=== PATIENT | male | born 1955 | race Caucasian/White ===

== ENCOUNTER → 2017-06-23 | Outpatient (CLI) | payer OTHER ==
--- NOTE | 2017-06-23 11:58 | PCVCIMAG ---
EXAM: BILATERAL CAROTID DUPLEX INDICATION: Carotid Occlusive Disease. FINDINGS: Doppler Measurements (centimeters per second): RIGHT: Peak CCA-87, Peak ECA-81, Diastolic ICA-40, Peak ICA-96, ICA/CCA Ratio-1.1. LEFT: Peak CCA-90, Peak ECA-100, Diastolic ICA-32, Peak ICA-81, ICA/CCA Ratio-0.9. RIGHT CAROTID: The carotid bulb has no significant plaque. The proximal internal carotid artery shows no significant stenosis. The common carotid artery shows no significant stenosis. The external carotid artery shows no significant stenosis. LEFT CAROTID: The carotid bulb has mild plaque. The proximal internal carotid artery shows <40% stenosis. The common carotid artery shows no significant stenosis. The external carotid artery shows no significant stenosis. Antegrade flow in both vertebral arteries. IMPRESSION: No significant stenosis of the right internal carotid artery with no significant plaque. <40% stenosis of the left internal carotid artery with mild plaque. LOC:[place] [id number]
--- NOTE | 2017-06-23 13:37 | PCVCIMAG ---
EXAM: AORTOILIAC DUPLEX INDICATION: Palpable abdominal fullness. FINDINGS: AORTA: Suprarenal aorta measures maximum diameter of 2.9 cm. There is not a fusiform infrarenal aortic aneurysm. The infrarenal aorta measures maximum diameter of 2.5 cm. No aortic stenosis. RIGHT COMMON ILIAC ARTERY: Maximum diameter is 1.1 cm. No significant stenosis. RIGHT EXTERNAL ILIAC ARTERY: No significant stenosis. LEFT COMMON ILIAC ARTERY: Maximum diameter is 1.3 cm. No significant stenosis. LEFT EXTERNAL ILIAC ARTERY: No significant stenosis. IMPRESSION: No abdominal aortic aneurysm. No aortoiliac stenosis seen. LOC:[id number]
== END | disposition home or self-care (01) ==
LOC: PCVCIMAG 10:12
PROVIDERS: ATTEND Internal Medicine Cardiovascular Disease
DX: I65.22 Occlusion and stenosis of left carotid artery (principal); E78.5 Hyperlipidemia, unspecified; R19.8 Other specified symptoms and signs involving the digestive system and abdomen; I87.2 Venous insufficiency (chronic) (peripheral); R19.09 Other intra-abdominal and pelvic swelling, mass and lump; M19.90 Unspecified osteoarthritis, unspecified site; Z72.0 Tobacco use; Z79.01 Long term (current) use of anticoagulants
CPT/HCPCS: 93880; 93978

== ENCOUNTER → 2017-07-04 | Outpatient (CLI) | payer OTHER ==
--- NOTE | 2017-07-04 14:48 | PCVCIMAG ---
APPROVED REPORT Exam: Stress Echocardiogram Indication: Nonischemic cardiomyopathy, tobacco use, HLP Patient Location: Echo lab Stress Nurse: Elayne Kay RN Status: routine Ht: 6 ft 2 in HR: 91 bpm BP: 144/88 mmHg Rhythm: NSR w/ PVCs Procedure The patient underwent an Exercise Stress Test using the Colin Protocol. Blood pressure, heart rate, and EKG were monitored. An Echocardiogram was performed by magnetic testing technician in four stages in quad fashion. At peak stress, four selected images were obtained and placed side by side with resting images for comparison. Stress Test Details Stress Test: Exercise stress testing was performed using a Colin protocol. HR Resting HR: 91 bpmMax Heart Rate (APMHR): 160 bpm Max HR Achieved: 131 bpmTarget HR (85% APMHR): 136 bpm % of APMHR: 81 Recovery HR: 100 bpm HR response to stress: Normal HR response to stress BP Resting BP: 144/88 mmHg Max BP: 168/78 mmHg Recovery BP: 132/68 mmHg ECG Resting ECG: Sinus Rhythm w/ isolated PVCs and couplet PVCs Stress ECG: Sinus Rhythm w/ isolated PVCs and couplet PVCs ST Change: Normal Arrhythmia: isolated and couplet PVCs Recovery ECG: Sinus Rhythm with PVCs Recovery ST Change: Normal Recovery Arrhythmia: Isolated and couplet PVCs Clinical Reason for Termination: Dyspnea, Maximal effort Stress Symptoms: Dyspnea Exercise duration: 7 min 54 sec Highest Stage Achieved: Stage 3: 3.4 mph at 14% grade. Exercise capacity: 10.1 METs Overall Exercise Capacity for Age: Average Pre-Stress Echo The resting Echocardiogram showed mildly decreased left ventricular contractility with an estimated Ejection Fraction of about 40-45%. Normal wall motion in all segments on baseline images. Globally mildly decreased systolic function due to known nonischemic cardiomyopathy. Post-Stress Echo The stress Echocardiogram showed normal left ventricular contractility with an estimated Ejection Fraction of about 50-55%. Normal augmentation of wall motion in all segments on post stress images. Clinical No clinical or ECG evidence for ischemia. Conclusion Clinical Response: Non-ischemic Exercise Capacity: Average Stress ECG Response: Non-ischemic Stress Echo Images: Non-ischemic The left ventricle is normal in size and wall thickness in both the rest and stress images. Other Information Study Quality: Adequate <Conclusion> The left ventricle is normal in size and wall thickness in both the rest and stress images.
== END | disposition home or self-care (01) ==
LOC: PCVCIMAG 06-28 14:02
PROVIDERS: ATTEND Internal Medicine Cardiovascular Disease
DX: I42.8 Other cardiomyopathies (principal); E78.5 Hyperlipidemia, unspecified; I49.3 Ventricular premature depolarization; Z72.0 Tobacco use
CPT/HCPCS: 93325; 93351

== ENCOUNTER → 2018-02-06 | Outpatient (CLI) | payer OTHER | END | disposition home or self-care (01) | LOC: PCVCIMAG 14:28 | DX: M79.605 Pain in left leg (principal); M79.604 Pain in right leg; M79.89 Other specified soft tissue disorders; Z86.718 Personal history of other venous thrombosis and embolism | CPT/HCPCS: 93970 ==